=== PATIENT | male | born 1965 | race Caucasian/White ===

== ENCOUNTER → 2016-11-20 | Outpatient (CLI) | payer OTHER ==
[2016-11-20 10:24] LABS: CHCM 32.8; HCT 45.6 % (39.0-53.0); HDW 2.18; HGB 14.9 gm/dL (13.0-17.5); MCHC 32.8 g/dL (31.0-37.0); MCV 91.6 fL (80.0-100.0); Mean Platelet Volume 6.8; RBC 4.98 m/uL (4.30-5.90); RDW 12.4 % (11.5-15.5); WBC 7.6 k/uL (3.8-10.6)
[2016-11-20 11:07] LABS: Hemoglobin A1C 8.8 % (4.2-6.1)
[2016-11-20 12:10] LABS: ALT 33 U/L (21-72); AST 20 U/L (17-59); Alkaline Phosphatase 92 U/L (38-126); Anion Gap 12 mmol/L; Blood Urea Nitrogen 15 mg/dL (9-20); Calcium 8.8 mg/dL (8.4-10.2); Carbon Dioxide 25 mmol/L (22-30); Chloride 103 mmol/L (98-107); Cholesterol 116 mg/dL (<200); Glucose 155 mg/dL (74-99); HDL Cholesterol 35 mg/dL (40-60); Non-African American GFR(MDRD) >60 (>60 ml/min/1.73 sqM); Potassium 4.8 mmol/L (3.5-5.1); Sodium 140 mmol/L (137-145); Total Bilirubin 0.8 mg/dL (0.2-1.3); Triglycerides 91 mg/dL (<150)
[2016-11-20 12:36] LABS: Prostate Specific Antigen 0.54 ng/mL (0.00-4.00)
== END ==
LOC: LABWHC1 09:17
PROVIDERS: ATTEND Internal Medicine
DX: E78.4 Other hyperlipidemia (principal); E87.8 Other disorders of electrolyte and fluid balance, not elsewhere classified; N40.0 Benign prostatic hyperplasia without lower urinary tract symptoms; R53.83 Other fatigue
CPT/HCPCS: 36415; 80053; 80061; 82043; 83036; 84153; 85027

== ENCOUNTER → 2017-11-01 | Outpatient (CLI) | payer BC ==
[2017-11-01 10:14] LABS: HCT 47.8 % (39.0-53.0); HGB 15.2 gm/dL (13.0-17.5); MCH 29.3 pg (25.0-35.0); MCHC 31.7 g/dL (31.0-37.0); MCV 92.4 fL (80.0-100.0); Platelet Count 382 k/uL (150-450); RBC 5.18 m/uL (4.30-5.90); RDW 12.2 % (11.5-15.5); WBC 12.9 k/uL (3.8-10.6)
[2017-11-01 10:33] LABS: ALT 28 U/L (21-72); AST 15 U/L (17-59); Albumin 3.8 g/dL (3.5-5.0); Alkaline Phosphatase 124 U/L (38-126); Anion Gap 12 mmol/L; Blood Urea Nitrogen 17 mg/dL (9-20); Calcium 9.1 mg/dL (8.4-10.2); Carbon Dioxide 24 mmol/L (22-30); Chloride 103 mmol/L (98-107); Cholesterol 140 mg/dL (<200); Glucose 224 mg/dL (74-99); HDL Cholesterol 45 mg/dL (40-60); LDL Cholesterol,Calculated 80 mg/dL (0-99); Potassium 4.8 mmol/L (3.5-5.1); Sodium 139 mmol/L (137-145); Total Bilirubin 0.7 mg/dL (0.2-1.3); Total Protein 7.1 g/dL (6.3-8.2); Triglycerides 74 mg/dL (<150)
[2017-11-01 11:02] LABS: Prostate Specific Antigen 0.59 ng/mL (0.00-4.00)
[2017-11-01 20:25] LABS: Hemoglobin A1C 8.7 % (4.0-6.0)
== END | disposition home or self-care (01) ==
LOC: LABWHC1 09:38
PROVIDERS: ATTEND Internal Medicine
DX: Z00.01 Encounter for general adult medical examination with abnormal findings (principal); E11.69 Type 2 diabetes mellitus with other specified complication; E78.2 Mixed hyperlipidemia; N40.1 Benign prostatic hyperplasia with lower urinary tract symptoms; R53.83 Other fatigue; Z13.228 Encounter for screening for other metabolic disorders; Z13.220 Encounter for screening for lipoid disorders; Z13.0 Encounter for screening for diseases of the blood and blood-forming organs and certain disorders involving the immune mechanism; Z12.5 Encounter for screening for malignant neoplasm of prostate; Z68.42 Body mass index [BMI] 45.0-49.9, adult; I10 Essential (primary) hypertension; E66.9 Obesity, unspecified; M51.26 Other intervertebral disc displacement, lumbar region; M47.816 Spondylosis without myelopathy or radiculopathy, lumbar region; Z13.1 Encounter for screening for diabetes mellitus
CPT/HCPCS: 36415; 80053; 80061; 82043; 82570; 83036; 84153; 85027

== ENCOUNTER → 2018-06-20 | Outpatient (CLI) | payer BC ==
[2018-06-20 09:18] LABS: ALT 18 U/L (21-72); AST 19 U/L (17-59); Albumin 3.5 g/dL (3.5-5.0); Alkaline Phosphatase 113 U/L (38-126); Anion Gap 8 mmol/L; Blood Urea Nitrogen 12 mg/dL (9-20); Calcium 8.9 mg/dL (8.4-10.2); Carbon Dioxide 26 mmol/L (22-30); Chloride 106 mmol/L (98-107); Cholesterol 153 mg/dL (<200); Glucose 141 mg/dL (74-99); HDL Cholesterol 40 mg/dL (40-60); LDL Cholesterol,Calculated 96 mg/dL (0-99); Potassium 4.7 mmol/L (3.5-5.1); Sodium 140 mmol/L (137-145); Total Bilirubin 0.4 mg/dL (0.2-1.3); Total Protein 6.8 g/dL (6.3-8.2); Triglycerides 83 mg/dL (<150)
[2018-06-20 10:48] LABS: HCT 45.7 % (39.0-53.0); HGB 14.5 gm/dL (13.0-17.5); MCH 29.3 pg (25.0-35.0); MCHC 31.8 g/dL (31.0-37.0); Mean Platelet Volume 7.8; Platelet Count 374 k/uL (150-450); RBC 4.96 m/uL (4.30-5.90); RDW 12.7 % (11.5-15.5); WBC 9.6 k/uL (3.8-10.6)
[2018-06-20 18:09] LABS: Hemoglobin A1C 9.5 % (4.0-6.0)
== END ==
LOC: LABWHC1 08:21
PROVIDERS: ATTEND Internal Medicine
DX: E11.69 Type 2 diabetes mellitus with other specified complication (principal); E78.4 Other hyperlipidemia; E87.8 Other disorders of electrolyte and fluid balance, not elsewhere classified; R53.83 Other fatigue
CPT/HCPCS: 36415; 80053; 80061; 83036; 85027

== ENCOUNTER → 2019-02-11 | Outpatient (CLI) | payer BC ==
--- NOTE | 2019-02-11 12:29 | XR ---
EXAMINATION TYPE: XR foot complete LT DATE OF EXAM: 02/11/2019 COMPARISON: NONE HISTORY: 54-year-old male left foot and ankle pain TECHNIQUE: 3 views FINDINGS: Tiny plantar calcaneal spur. Smooth delineation to the Achilles tendon. No acute fracture, subluxatio n, or dislocation seen. IMPRESSION: Tiny plantar calcaneal spur. No acute osseous abnormality seen.
--- NOTE | 2019-02-11 13:06 | XR ---
EXAMINATION TYPE: XR ankle complete LT DATE OF EXAM: 02/11/2019 COMPARISON: NONE HISTORY: Pain FINDINGS: Three views of the ankle demonstrate the ankle mortise to be intact and symmetric. The joint spaces are preserved. The osseous structures are intact. Diffuse soft tissue edema noted. Small plantar ca lcaneal spur. IMPRESSION: 1. No definite acute fracture or dislocation, if symptoms persist follow-up study in 7 to 10 days wou ld be suggested. 2. Soft tissue nonspecific edema correlate clinically.
== END | disposition home or self-care (01) ==
LOC: RADXRMAIN 11:55
PROVIDERS: ATTEND Internal Medicine
DX: M25.572 Pain in left ankle and joints of left foot (principal); M79.672 Pain in left foot

== ENCOUNTER → 2019-03-01 | Outpatient (CLI) | payer BC ==
--- NOTE | 2019-03-01 11:16 | US ---
EXAMINATION TYPE: US venous doppler duplex LE LT DATE OF EXAM: 03/01/2019 11:00 AM COMPARISON: NONE CLINICAL HISTORY: I80.9Phlebitis and thrombophlebitis of unspecified. Left dorsal foot and medial ank le pain and swelling x 3 weeks. SIDE PERFORMED: Left TECHNIQUE: The lower extremity deep venous system is examined utilizing real time linear array sonog mitchell with graded compression, doppler sonography and color-flow sonography. VESSELS IMAGED: Common Femoral Vein Deep Femoral Vein Greater Saphenous Vein * Femoral Vein Popliteal Vein Small Saphenous Vein * Proximal Calf Veins (* superficial vessels) Large body habitus is noted at HT 6'0 and WT 360lbs per patient. Left Leg: Negative for DVT and negative for SVT. Edema channels are noted at left ankle at medial ma lleolus level at patient's swelling. Grayscale, color doppler, spectral doppler imaging performed of the deep veins of the left lower extr emity. There is normal flow, compressibility, vascular waveforms. IMPRESSION: Focal edema overlying the medial malleolus in the patient's indicated area of swelling. No sonographic evidence of superficial venous thrombosis nor acute deep venous thrombosis of the left lower extremity.
== END | disposition home or self-care (01) ==
LOC: RADUSWWP 10:25
PROVIDERS: ATTEND Orthopaedic Surgery
DX: M79.89 Other specified soft tissue disorders (principal); E10.8 Type 1 diabetes mellitus with unspecified complications; I80.9 Phlebitis and thrombophlebitis of unspecified site

== ENCOUNTER → 2019-05-03 | Outpatient (CLI) | payer BC ==
--- NOTE | 2019-05-03 08:48 | MR ---
EXAMINATION TYPE: MR ankle LT wo con DATE OF EXAM: 05/03/2019 COMPARISON: Left ankle x-ray February 11, 2019 HISTORY: Pain in left ankle and joints of left foot, posterior tibial tendinitis, edema, diabetes, os teoarthritis all per order. Standard multiplanar, multisequence MRI departmental protocol Multiplanar, multisequence images of the left ankle were acquired. Diffusion weighted imaging was per formed. FINDINGS: The exam is suboptimal as it is degraded by patient motion. Distal Achilles tendon is intac t. Plantar fascia is felt within normal limits. Mild to moderate subcutaneous edema along the distal fibula with more mild subcutaneous edema anterio r to the lateral malleolus. Peroneus tendons are felt within normal limits. The flexor tendons along posterior medial aspect of the ankle are felt within normal limits. No suspi cious increased signal or surrounding fluid to suggest tendinopathy involving the posterior tibial te ndon. Focal moderate diffuse subcutaneous edema over the medial malleolus is noted. Anterior extensor tendons are intact. Anterior tibiofibular and anterior talofibular ligaments are in tact. Medial deltoid ligament is intact. Normal sinus tarsi fat is seen. There is heterogeneous diminished T1 and increased T2 signal involvin g anterior 1/3-1/2 of the calcaneus. Smaller area of involvement superior slightly anterior calcaneus is seen felt to be extending near the subtalar joint. There is involvement at the base of the navicu lar bone articulating with the talus. The Lisfranc midfoot joints are maintained. Some areas of low T 1 signal centered in the anterior talus felt present sagittal image 8 for reference. IMPRESSION: 1. No ligamentous or tendon tear identified. No significant tendinopathy seen. 2. Significant hindfoot osseous contusion and/or pulmonary edema may be related to altered walking me chanics because of pain. Possible insufficiency fracture anterior aspect of the talus at the site of most prominent edema.
== END | disposition home or self-care (01) ==
LOC: RADMRIMAIN 07:40
PROVIDERS: ATTEND Orthopaedic Surgery
DX: M25.572 Pain in left ankle and joints of left foot (principal); E10.8 Type 1 diabetes mellitus with unspecified complications; M19.072 Primary osteoarthritis, left ankle and foot

== ENCOUNTER → 2019-05-08 | Outpatient (CLI) | payer BC ==
[2019-05-08 08:37] LABS: HCT 44.4 % (39.0-53.0); MCH 31.8 pg (25.0-35.0); MCHC 33.9 g/dL (31.0-37.0); MCV 93.9 fL (80.0-100.0); Mean Platelet Volume 7.9; Platelet Count 346 k/uL (150-450); RBC 4.73 m/uL (4.30-5.90); RDW 13.4 % (11.5-15.5); WBC 10.7 k/uL (3.8-10.6)
[2019-05-08 10:12] LABS: Appearance,Urine Cloudy (Clear); Bacteria,Urine Rare /hpf; Bilirubin,Urine Negative (Negative); Blood,Urine Negative (Negative); Color,Urine Dark Yellow; Glucose,Urine (UA) Negative (Negative); Ketones,Urine 2+ (Negative); Leukocyte Esterase,Urine Negative (Negative); Mucus,Urine Many /hpf; Nitrite,Urine Negative (Negative); PH, Urine 5.5 (5.0-8.0); Protein,Urine 1+ (Negative); RBC,Urine 1 /hpf (0-5); Squamous Epithelial Cell,Urine 3 /hpf (0-4); WBC,Urine 3 /hpf (0-5)
[2019-05-08 16:33] LABS: African American GFR (CKD) 97.1 (60.0-200.0); Albumin/Globulin Ratio 1.54 (1.60-3.17); Anion Gap 9.1 mmol/L (4.00-12.00); Carbon Dioxide 26.9 mmol/L (21.6-31.8); Globulin 2.6 g/dL (1.6-3.3); Potassium 4.4 mmol/L (3.5-5.5); Total Bilirubin 0.7 mg/dL (0.3-1.2); Total Protein 6.6 g/dL (6.2-8.2)
[2019-05-08 16:38] LABS: Vitamin D 25 Hydroxy 22.6 ng/mL (30.0-100.0)
== END | disposition home or self-care (01) ==
LOC: LABWHC1 07:58
PROVIDERS: ATTEND Orthopaedic Surgery
DX: M25.572 Pain in left ankle and joints of left foot (principal); M76.822 Posterior tibial tendinitis, left leg; E10.8 Type 1 diabetes mellitus with unspecified complications; R60.9 Edema, unspecified; M19.072 Primary osteoarthritis, left ankle and foot
CPT/HCPCS: 36415; 80053; 81001; 82306; 82310; 82652; 83970; 84100; 85027

== ENCOUNTER → 2024-01-13 | Outpatient (CLI) | payer BC ==
[2024-01-13 16:12] LABS: ALT 15 U/L (10-49); AST 11 U/L (14-35); Albumin 3.9 g/dL (3.8-4.9); Albumin/Globulin Ratio 1.34 Ratio (1.60-3.17); Alkaline Phosphatase 120 U/L (41-126); Calcium 9.1 mg/dL (8.7-10.3); Carbon Dioxide 25.4 mmol/L (21.6-31.8); Chloride 102 mmol/L (96-109); Chol/HDL Ratio 3.09 Ratio; Globulin 2.9 g/dL (1.6-3.3); Glucose 284 mg/dL (70-110); LDL Cholesterol,Calculated 87.3 mg/dL (0.0-131.0); Potassium 5.2 mmol/L (3.5-5.5); Sodium 135 mmol/L (135-145); Total Bilirubin 0.7 mg/dL (0.3-1.2); Total Protein 6.8 g/dL (6.2-8.2)
[2024-01-13 19:12] LABS: Microalbumin Creatinine Ratio <16 mg/g Cr (0-30); Urine Creatinine 76.9 mg/dL (39.0-259.0)
== END | disposition home or self-care (01) ==
LOC: LABWHC1 09:26
PROVIDERS: ATTEND Internal Medicine
DX: E10.65 Type 1 diabetes mellitus with hyperglycemia (principal)
CPT/HCPCS: 36415; 80053; 80061; 82043; 82570; 83036

== ENCOUNTER → 2024-12-17 | Outpatient (CLI) | payer BC ==
[2024-12-17 16:06] LABS: Appearance,BF Hazy; Color,BF Yellow; RBC, Body Fluid 22 /uL
[2024-12-17 16:07] LABS: Nucleated Cells, Body Fluid 98 /uL
[2024-12-17 16:19] LABS: Mononuclear WBC,Body Fluid 96 %; Polynuclear WBC,Body Fluid 3 %; Total Cells Counted,Body Fluid 100
[2024-12-18 04:41] LABS: Synovial Fld Crystals None Seen (None Seen)
== END | disposition home or self-care (01) ==
LOC: LABWHC1 13:07
PROVIDERS: ATTEND Physician Assistant
DX: M25.561 Pain in right knee (principal)
CPT/HCPCS: 36415; 85652; 86140; 87070; 87075; 87205; 89050; 89060